=== PATIENT | female | born 1995 | race Caucasian/White ===

== ENCOUNTER 2022-05-25 17:53 | Emergency (ER) | payer OTHER ==
[~2022-05-25] VITALS: Ht 167.6 cm; Wt 81.6 kg
[2022-05-25] MEDS ORDERED: MEDROLPACK PO (19:34)
[2022-05-25] MEDS ORDERED: ALLEGRA ALLERG180 MG PO (19:34)
== END 2022-05-25 19:43 | disposition home or self-care (01) ==
LOC: ER 17:53
DX: T78.1XXA Other adverse food reactions, not elsewhere classified, initial encounter (principal); Z91.013 Allergy to seafood